=== PATIENT | male | born 1970 | race Caucasian/White ===

== ENCOUNTER 2019-03-08 11:06 | Emergency (ER) | payer MEDICAID ==
[~2019-03-08] VITALS: Ht 177.8 cm; Wt 60.8 kg
[2019-03-08] MEDS ORDERED: PHENOBARBITAL64.8 MG PO ×2 (11:59→14:06)
[2019-03-08] MEDS ORDERED: HALOPERIDOL10 MG PO ×2 (12:00→14:06)
== END 2019-03-08 14:25 | disposition home or self-care (01) ==
LOC: ED 11:06
DX: R56.9 Unspecified convulsions (principal); R53.83 Other fatigue; F17.200 Nicotine dependence, unspecified, uncomplicated; Z91.030 Bee allergy status; Z79.899 Other long term (current) drug therapy
CPT/HCPCS: 80053; 81001; 83735; 85025; 96361; 96374; 99285-25; 99406; J2405; J7040